=== PATIENT | male | born 2000 | race Two or more races ===

== ENCOUNTER 2021-06-19 13:50 | Outpatient (REF) | payer OTHER, SELFPAY ==
[2021-06-20 04:41] LABS: CT PCR NOT DETECTED (Not Detect.); NG PCR NOT DETECTED (Not Detect.)
== END 2021-06-19 13:51 | disposition home or self-care (01) ==
LOC: HO.LNP 13:50
PROVIDERS: Visit Provider Internal Medicine
DX: R30.0 Dysuria (principal)
CPT/HCPCS: 87491; 87591

== ENCOUNTER 2021-07-01 | Outpatient (REF) | payer OTHER, SELFPAY ==
[2021-07-02 15:54] LABS: CT PCR NOT DETECTED (Not Detect.); NG PCR NOT DETECTED (Not Detect.)
== END 2021-07-01 00:01 | disposition home or self-care (01) ==
LOC: HO.LNP
PROVIDERS: Visit Provider Internal Medicine
DX: R30.0 Dysuria (principal)
CPT/HCPCS: 87491; 87591

== ENCOUNTER 2022-08-19 12:21 | Outpatient (REF) | payer OTHER, SELFPAY ==
--- NOTE | ~2022-08-19 | XR_ITS ---
EXAMINATION: XR KNEE, LEFT CLINICAL INFORMATION: Pain and sprain COMPARISON: None TECHNIQUE: Four views of the left knee. FINDINGS: Bones and soft tissues are normal. No fracture or joint effusion. Alignment is anatomic. Joint spaces are well maintained. No abnormal soft tissue calcification. XR/XR knee LT 3V IMPRESSION: Normal left knee.
== END 2022-08-19 12:22 | disposition home or self-care (01) ==
LOC: HO.HMGCX 12:21
PROVIDERS: PCP Internal Medicine; Visit Provider Internal Medicine
DX: S83.92XA Sprain of unspecified site of left knee, initial encounter (principal); X58.XXXA Exposure to other specified factors, initial encounter; Y93.9 Activity, unspecified; Y92.9 Unspecified place or not applicable; Y99.9 Unspecified external cause status
CPT/HCPCS: 73562

== ENCOUNTER 2024-05-01 14:01 | Outpatient (AMB) | payer OTHER, SELFPAY ==
--- NOTE | 2024-05-01 14:03 | MHC.OFFWIV ---
Intake Vital Signs 05/01/24 14:04 Height 5 ft 10 in Weight 177 lb BMI 25.4 BP 114/60 Blood Pressure Location Rt brachial Position Sitting Pulse 54 Pulse Source Pulse Oximeter Temp 98.5 F Temp Source Oral Pulse Oximetry (%) 98 Oxygen Delivery Method Room Air Intake Visit Reasons: EP Skin infection? Intake Note: pt c/o multiple small lesions on skin. ? skin infection. Ongoing intermittent staph. Patient Tobacco Use Status: Never used Tobacco Allergies cat dander Allergy (Mild, Verified 05/01/24 14:04) sneezing, itchy eyes, neck, sniffles. 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 Today he states he thinks he has staph infection on his skin because he has several lesions that are on his left arm, his scalp and his neck as well as underneath his right armpit. Na also thinks he has ringworm on the back of his neck on the right side and has been treating it with [id number] 2% miconazole cream. He states that he thinks he usually gets amoxicillin for the skin infection. He denies any purulence or itching from the lesions on his skin PFSH Social History Patient Tobacco Use Status: Never used Tobacco Review of Systems Const All systems reviewed & are unremarkable except as noted in HPI and below Physical Exam Vital Signs: Last Vital Signs Temp 98.5 F 05/01/24 14:04 Pulse 54 05/01/24 14:04 BP 114/60 05/01/24 14:04 Pulse Ox 98 05/01/24 14:04 Oxygen Delivery Method Room Air 05/01/24 14:04 BMI result Body Mass Index 25.4 Const General: cooperative, healthy appearing, comfortable, no acute distress and well developed Orientation/consciousness: patient oriented x3 Limitations: no limitations Eyes General: appearance normal, both eyes and all related structures Resp Effort & Inspection: normal respiratory effort and able to speak in complete sentences Skin Other: Base of the right side of posterior neck he has a circular lesion that is dry in appearance. 0.50 cm circular lesion, no fluctuance, purulence or induration noted on left arm, right axilla and right side of upper posterior scalp. Neuro General: patient oriented x3 Assessment & Plan Assessment & Plan (1) Ringworm of body: Code(s): B35.4 - Tinea corporis Plan: Recommended he use the 2% miconazole [id number], if no improvement he should return and we could try terbinafine cream for 2-4 weeks (2) Staphylococcal infection of skin: Code(s): L08.9 - Local infection of the skin and subcutaneous tissue, unspecified; B95.8 - Unspecified staphylococcus as the cause of diseases classified elsewhere Plan: Sent Keflex to pharmacy Plan see above Medications: New cephalexin 500 mg PO Q6H 20 caps 0RF Coding Level of Care Code Est Pt Level 4 (53241) Diagnoses Ringworm of body B35.4 Staphylococcal infection of skin L08.9; B95.8
[2024-05-01 14:04] VITALS: BP 114/60; PULSE 54; TEMP 36.9; O2SAT 98; BMI 25.4
== END 2024-05-01 14:47 | disposition home or self-care (01) ==
PROVIDERS: PCP Internal Medicine; Visit Provider Physician Assistant
DX: B35.4 Tinea corporis (principal); L08.9 Local infection of the skin and subcutaneous tissue, unspecified; B95.8 Unspecified staphylococcus as the cause of diseases classified elsewhere

== ENCOUNTER → 2024-05-01 14:01 | Outpatient (BNVA) | payer MEDICAID, SELFPAY | PROVIDERS: PCP Internal Medicine | DX: B35.4 Tinea corporis (principal); L08.9 Local infection of the skin and subcutaneous tissue, unspecified; B95.8 Unspecified staphylococcus as the cause of diseases classified elsewhere | CPT/HCPCS: 99212 ==